=== PATIENT | female | born 1970 | race Caucasian/White ===

== ENCOUNTER 2017-01-05 13:14 | Emergency (ER) | payer OTHER ==
[2017-01-05 13:19] VITALS: BMI 20.5
[2017-01-05] MEDS ORDERED: ONDANSETRON 4 MG/2 ML VIAL IVPUSH ONE (13:54)
[2017-01-05] MEDS ORDERED: SODIUM CHLORIDE 1,000 ML IV STA (13:54)
[2017-01-05] MEDS ORDERED: KETOROLAC TROMETHAMINE 30 MG/1 ML VIAL IVPUSH ONE (13:56)
[2017-01-05] MEDS ORDERED: KETOROLAC TROMETHAMINE 30 MG/1 ML VIAL ONE (13:57)
[2017-01-05] MEDS ORDERED: ONDANSETRON 4 MG/2 ML VIAL ONE (13:58)
--- NOTE | 2017-01-05 14:15 | PDOC ---
History of Present Illness - General Chief Complaint: Pain Stated Complaint: PAIN Time Seen by Provider: 01/05/17 13:43 History Source: Patient - History of Present Illness Timing/Duration: reports: constant, getting worse Quality: reports: cramping Abdominal Pain Onset Location: reports: other (lower abd) Past History - Past Medical History Allergies/Adverse Reactions: Allergies Allergy/AdvReac Type Severity Reaction Status Date / Time latex Allergy Swelling Verified 01/05/17 13:20 Home Medications: Ambulatory Orders Ciprofloxacin HCl [Cipro] 500 mg PO BID #14 tablet 01/05/17 Fluoxetine HCl 20 mg PO DAILY 01/05/17 Metronidazole 500 mg PO Q8H #21 tablet 01/05/17 Oxycodone HCl/Acetaminophen [Percocet 5-325 mg Tablet] 2 combo PO Q6H 01/05/17 Trazodone HCl [Desyrel -] 150 mg PO HS PRN 01/05/17 Anemia: No Asthma: Yes Cancer: Yes (CERVICAL) Cardiac Disorders: No CVA: No COPD: Yes CHF: No Dementia: No Diabetes: No GI Disorders: No Disorders: No HTN: No Hypercholesterolemia: No Liver Disease: No Psychiatric Problems: Yes (DEPRESSION) Seizures: No Thyroid Disease: No - Surgical History Abdominal Surgery: No Appendectomy: Yes (2007) Cardiac Surgery: No Cholecystectomy: No Lung Surgery: No Neurologic Surgery: No Orthopedic Surgery: No - Family Disease History Family Disease History: Respiratory: Mother (copd) - Psycho/Social/Smoking Cessation Hx Anxiety: Yes Suicidal Ideation: No Smoking Status: Yes Smoking History: Never smoked Number of Cigarettes Smoked Daily: 2 Information on smoking cessation initiated: No 'Breaking Loose' booklet given: 11/26/12 Hx Alcohol Use: No Drug/Substance Use Hx: Yes (MARIJUANA IN THE PAST) Substance Use Type: Alcohol Hx Substance Use Treatment: No Review of Systems - Review of Systems Constitutional: No: Chills, Fever ABD/GI: Yes: Constipated, Nausea, Vomiting, Abdominal cramping : No: Dysuria *Physical Exam - Vital Signs Last Vital Signs Temp Pulse Resp BP Pulse Ox 98 F 81 18 111/82 100 01/05/17 13:16 01/05/17 13:16 01/05/17 13:16 01/05/17 13:16 01/05/17 13:16 - Physical Exam Comments: 01/05/17 14:14 pt crying in ED General Appearance: Yes: Appropriately Dressed HEENT: positive: Normal Voice Neck: positive: Supple Respiratory/Chest: negative: Respiratory Distress Gastrointestinal/Abdominal: positive: Normal Bowel Sounds, Tender, Soft. negative: Distended, Guarding, Rebound Musculoskeletal: negative: CVA Tenderness Integumentary: positive: Dry, Warm Neurologic: positive: Fully Oriented, Alert ED Treatment Course - LABORATORY CBC & Chemistry Diagram: 01/05/17 14:17 01/05/17 14:17 - RADIOLOGY Radiology Studies Ordered: Category Date Time Status ABDOMEN & PELVIS CT WITH CONTR [CT] Stat CT Scan 01/05/17 13:53 Ordered Medical Decision Making - Medical Decision Making 01/05/17 14:11 46 yo F, h/o asthma, migraines, COPD, chronic back pain on narcotics, s/p appendectomy, depression, anxiety w/ agoraphobia, f/u with psych at [facility] , [facility] w/ lower abd pain w/ n/v > 1 week that started shortly after being started on prozac but continues to take meds. Also c/o constipation that improved w/ MOM. No brbpr, melena, f/c See exam N/v w/ abd pain s/p prozac Stable w/ significant lower abd ttp on exam ?gastroenteritis vs SE of med (prozac known to cause dyspepsia, constipation, n/ v in ~10-30% of pts) -pain control -IVF -labs -will scan given sig pain 01/05/17 14:27 01/05/17 17:[address] w/ ?mild colitis of distal transverse, descending and sigmoid colon, no diverticulitis. Pt pain currently controlled. Stable for dc w / abx and PMD f/u *DC/Admit/Observation/Transfer Diagnosis at time of Disposition: Colitis - Discharge Dispostion Disposition: HOME Condition at time of disposition: Improved - Prescriptions Prescriptions: Ciprofloxacin HCl [Cipro] 500 mg PO BID #14 tablet Metronidazole 500 mg PO Q8H #21 tablet - Referrals Referrals: Andrew Olson [Primary Care Provider] - - Patient Instructions Printed Discharge Instructions: DI for Colitis Additional Instructions: Your CAT scan shows possibly mild inflammation to colon Take antibiotics as prescribed and follow-up with your PMD
[2017-01-05 14:29] LABS: EOSINOPHIL 1.5 % (0-4.5); MCH 32.1 pg (25.7-33.7); MCHC 33.4 g/dl (32.0-36.0); MEAN PLT VOLUME 9.2 fl (7.5-11.1); NEUTROPHILS 64.5 % (42.8-82.8); PLATELET COUNT 223 K/MM3 (134-434); RDW 13.8 % (11.6-15.6); WHITE BLOOD COUNT 10.4 K/mm3 (4.0-10.0)
[2017-01-05 14:31] LABS: URINE APPEARANCE CLEAR; URINE BLOOD 1+ (NEGATIVE); URINE COLOR AMBER; URINE GLUCOSE (UA) NEGATIVE (NEGATIVE); URINE KETONE TRACE (NEGATIVE); URINE LEUK ESTERASE NEGATIVE (NEGATIVE); URINE NITRITE NEGATIVE (NEGATIVE)
[2017-01-05 14:33] LABS: URINE PROTEIN 1+ (NEGATIVE)
[2017-01-05 14:36] LABS: URINE HYALINE CAST 2 /lpf; URINE MUCUS MANY; URINE RBC 9 /hpf (0-3); URINE WBC 1 /hpf (3-5)
[2017-01-05 15:23] LABS: ALBUMIN 4.2 g/dl (3.4-5.0); ANION GAP 7 (8-16); CALCIUM 9.7 mg/dL (8.5-10.1); CO2 28 mmol/L (21-32); CREATININE 1.1 mg/dL (0.55-1.02); GLUCOSE,RANDOM 73 mg/dL (74-106); SGOT/AST 11 U/L (15-37); SGPT/ALT 12 U/L (12-78)
[2017-01-05 15:24] LABS: ALK PHOS 78 U/L (45-117); BILIRUBIN,TOTAL 0.6 mg/dL (0.2-1.0); TOT PROT 7.4 g/dl (6.4-8.2)
[2017-01-05] MEDS ORDERED: morphine CARPU-JECT 4 MG/1 ML DISP.SYRIN IVPUSH ONE (17:17)
[2017-01-05] MEDS ORDERED: morphine CARPU-JECT 4 MG/1 ML DISP.SYRIN ONE (17:20)
[2017-01-05 18:07] VITALS: BP 120/66; PULSE 66; TEMP 97.8
== END 2017-01-05 18:07 | disposition home or self-care (01) ==
LOC: JER 13:14
PROC: 3E033NZ Introduction of Analgesics, Hypnotics, Sedatives into Peripheral Vein, Percutaneous Approach (ICD-10-PCS; principal; 2017-01-05)
PROC: 3E0333Z Introduction of Anti-inflammatory into Peripheral Vein, Percutaneous Approach (ICD-10-PCS; 2017-01-05)
PROC: 3E033GC Introduction of Other Therapeutic Substance into Peripheral Vein, Percutaneous Approach (ICD-10-PCS; 2017-01-05)
DX: K52.9 Noninfective gastroenteritis and colitis, unspecified (principal); J45.909 Unspecified asthma, uncomplicated; J44.9 Chronic obstructive pulmonary disease, unspecified; G43.909 Migraine, unspecified, not intractable, without status migrainosus; F41.8 Other specified anxiety disorders; F40.00 Agoraphobia, unspecified
CPT/HCPCS: 36415; 74177-TC; 80053; 81003; 81015; 84703; 85025; 96374; 96375; 99284-25

== ENCOUNTER 2017-02-04 07:32 | Day surgery (SDC) | payer OTHER ==
[2017-02-03 11:23] VITALS: BMI 22.1
[2017-02-04] MEDS ORDERED: PROPOFOL 20 ML ONE ×4 (08:40)
[2017-02-04 09:33] VITALS: TEMP 97.6
[2017-02-04 11:28] VITALS: BP 119/84; PULSE 66
--- NOTE | 2017-02-05 13:25 | PATH ---
Surgical Pathology Report Patient Name: PATRICK YU [facility] Rec. #: [id number] /Age/Gender: 1970 (Age: 46) / F Account: [id number] Location: [facility]-ENDOSCOPY Taken: 02/04/2017 Received: 02/04/2017 Reported: 02/05/2017 Physicians: Alessandro Aguero M.D. Specimen(s) Received A: BX ANTRUM B: BX MID ESOPHAGUS C: BX RIGHT COLON POLYPS Clinical History Constipation/abdominal pain Gastritis; colon polyps Final Diagnosis A. STOMACH, ANTRUM, BIOPSY: GASTRIC ANTRAL MUCOSA WITH MILD CHRONIC GASTRITIS. IMMUNOSTAIN FOR H. PYLORI IS NEGATIVE FOR ORGANISMS. B. ESOPHAGUS, MID, BIOPSY: SQUAMOUS EPITHELIUM WITH MILD CHRONIC INFLAMMATION AND REFLUX TYPE CHANGES. NO EVIDENCE OF EOSINOPHILIC ESOPHAGITIS. C. COLON, RIGHT, POLYP, BIOPSY: TUBULAR ADENOMA. ADDITIONAL POLYPOID FRAGMENT OF COLONIC MUCOSA WITH REACTIVE LYMPHOID AGGREGATE. Electronically Signed Earl Dougherty M.D. Gross Description A. Received in formalin, labeled "antrum" is a duckworth, irregular portion of soft tissue measuring 0.2 cm in greatest dimension. The specimen is submitted in toto in one cassette. B. Received in formalin, labeled "biopsy mid esophagus" are 2 duckworth, irregular portions of soft tissue measuring 0.1 cm in greatest dimension. The specimens are submitted in toto in one cassette. C. Received in formalin, labeled "biopsy right colon polyps" are 2 duckworth, irregular portions of soft tissue measuring 0.1-0.3 cm in greatest dimension. The specimens are submitted in toto in one cassette. [facility]/02/04/2017 [facility]/02/04/2017
== END 2017-02-04 10:45 | disposition home or self-care (01) ==
LOC: JASU-ENDO 07:32
PROVIDERS: ATTEND Internal Medicine Gastroenterology
PROC: 0DB68ZX Excision of Stomach, Via Natural or Artificial Opening Endoscopic, Diagnostic (ICD-10-PCS; 2017-02-04)
PROC: 0DBK8ZX Excision of Ascending Colon, Via Natural or Artificial Opening Endoscopic, Diagnostic (ICD-10-PCS; 2017-02-04)
PROC: 0DB28ZX Excision of Middle Esophagus, Via Natural or Artificial Opening Endoscopic, Diagnostic (ICD-10-PCS; principal; 2017-02-04 08:45)
DX: Z12.11 Encounter for screening for malignant neoplasm of colon (principal); K29.80 Duodenitis without bleeding; K29.50 Unspecified chronic gastritis without bleeding; Z80.0 Family history of malignant neoplasm of digestive organs; R63.4 Abnormal weight loss; D12.2 Benign neoplasm of ascending colon
CPT/HCPCS: 88305-TC; 88342-TC

== ENCOUNTER 2017-07-11 19:28 | Emergency (ER) | payer OTHER ==
--- NOTE | 2017-07-11 19:55 | PDOC ---
Rapid Medical Evaluation Chief Complaint: Headache Time Seen by Provider: 07/11/17 19:48 Medical Evaluation: Allergies Allergy/AdvReac Type Severity Reaction Status Date / Time No Known Allergies Allergy Verified 02/03/17 11:58 07/11/17 19:51 I have performed a brief in-person evaluation of this patient. The patient presents with a chief complaint of: chills, fevers, frontal headache and fullness "feels like a balloon". Pertinent physical exam findings: pale,runny nose , body aches I have ordered the following: Ibuprofen 400mg The patient will proceed to the ED for further evaluation.
[2017-07-11] MEDS ORDERED: IBUPROFEN 400 MG TABLET (FP) PO ONE (19:57)
[2017-07-11 20:01] VITALS: BP 121/93; PULSE 98; TEMP 98.6; BMI 23.7
[2017-07-11] MEDS ORDERED: MECLIZINE HCL 25 MG TABLET (FP) PO ONE (20:24)
--- NOTE | 2017-07-11 20:24 | PDOC ---
History of Present Illness - General Chief Complaint: Headache Stated Complaint: HEADACHE Time Seen by Provider: 07/11/17 19:48 History Source: Patient Exam Limitations: No Limitations - History of Present Illness Initial Comments: CHIEF COMPLAINT: 46 y/o afebrile female c/o feeling weak and dizzy since last night. HISTORY OF PRESENT ILLNESS: The patient states all of a sudden last night if she looks down or too quickly from side to side she feels like the room is spinning, she feels nauseous and weak. She denies f/c, neck pain, v/d, runny nose, cough, CP, SOB, abd pain, numbness/tingling, recent plane/boat travel. Vital signs on arrival are notable for pulse of 98. REVIEW OF SYSTEMS: GENERAL/CONSTITUTIONAL: No fever/chills. No weakness. No weight change. HEAD, EYES, EARS, NOSE AND THROAT: No change in vision. No ear pain or discharge. No sore throat. CARDIOVASCULAR: No chest pain or shortness of breath. RESPIRATORY: No cough, wheezing, or hemoptysis. GASTROINTESTINAL: +nausea. No abd pain, vomiting, diarrhea. GENITOURINARY: No dysuria, frequency, or change in urination. MUSCULOSKELETAL: No joint or muscle swelling or pain. No neck or back pain. SKIN: No rash or easy bruising. NEUROLOGIC: +dizziness and vertigo. No loss of consciousness or loss of sensation. PHYSICAL EXAM: GENERAL: The patient is awake, alert, and fully oriented, in no acute distress. She is non toxic appearing. HEAD: Normal with no signs of trauma. Dizziness and nausea reproduced with rapid movement of head from side to side; worse with movement to left side. ENT: Pupils equal, round and reactive to light, extraocular movements intact, sclera anicteric, conjunctiva clear. No nystagmus. LUNGS: Clear to auscultation bilaterally. Normal excursion. No respiratory distress or use of accessory muscles. CV: RRR, S1/S2, no MRG. Cap refill < 2 sec. ABDOMEN: Soft, non-distended, non-tender even to deep palpation, no hepatomegaly or splenomegaly, no masses. EXTREMITIES: Normal range of motion, no edema. NEUROLOGICAL: Normal speech, normal gait. CN II-XII grossly intact. PSYCH: Normal mood, normal affect. SKIN: Warm, dry, normal turgor, no rashes or lesions noted. Past History - Past Medical History Allergies/Adverse Reactions: Allergies Allergy/AdvReac Type Severity Reaction Status Date / Time No Known Allergies Allergy Verified 07/11/17 19:51 Home Medications: Ambulatory Orders Trazodone HCl [Desyrel -] 150 mg PO HS 01/05/17 Albuterol Sulfate Inhaler - [Ventolin HFA Inhaler -] 1 - 2 inh PO Q4H 02/03/17 Bupropion HCl [Bupropion Xl] 300 mg PO DAILY 02/03/17 Clonazepam [Klonopin] 1 mg PO DAILY 02/03/17 Ranitidine [Zantac -] 150 mg PO BID 02/03/17 Tizanidine HCl 4 mg PO DAILY 02/03/17 Albuterol Sulfate Inhaler - [Ventolin Hfa Inhaler -] 1 - 2 inh PO Q4H 07/11/17 Aspirin/Acetaminophen/Caffeine [Excedrin Migraine Caplet] 1 each PO ASDIR Epinephrine [Epipen] 0.3 mg IJ ASDIR 07/11/17 Fexofenadine HCl [Cora Allergy] 180 mg PO ASDIR 07/11/17 Risperidone [Risperdal] 2 mg PO DAILY 07/11/17 Anemia: No Asthma: Yes Cancer: Yes (CERVICAL) Cardiac Disorders: No CVA: No COPD: Yes CHF: No Dementia: No Diabetes: No GI Disorders: No Disorders: No HTN: No Hypercholesterolemia: No Liver Disease: No Psychiatric Problems: Yes (DEPRESSION) Seizures: No Thyroid Disease: No - Surgical History Abdominal Surgery: No Appendectomy: Yes (2007) Cardiac Surgery: No Cholecystectomy: No Lung Surgery: No Neurologic Surgery: No Orthopedic Surgery: No - Family Disease History Family Disease History: Respiratory: Mother (copd) - Suicide/Smoking/Psychosocial Hx Smoking Status: Yes Smoking History: Current every day smoker Number of Cigarettes Smoked Daily: 4 Information on smoking cessation initiated: No 'Breaking Loose' booklet given: 02/04/17 Hx Alcohol Use: No Drug/Substance Use Hx: No Substance Use Type: Marijuana Hx Substance Use Treatment: No Neuro Specific PMHX - Complaint Specific PMHX Glaucoma: No Herniated Disk: No Laminectomy: No Migraine: No Multiple Sclerosis: No TIA: No *Physical Exam - Vital Signs Last Vital Signs Temp Pulse Resp BP Pulse Ox 98.6 F 98 H 16 121/93 98 07/11/17 19:51 07/11/17 19:51 07/11/17 19:51 07/11/17 19:51 07/11/17 19:51 ED Treatment Course - Medications Given in the ED: ED Medications Discontinued Medications Generic Name Dose Route Start Last Admin Trade Name Americo PRN Reason Stop Dose Admin Ibuprofen 400 mg 07/11/17 19:57 07/11/17 20:04 Motrin - PO 07/11/17 19:58 400 mg ONCE ONE Administration Medical Decision Making - Medical Decision Making A/P: 46 y/o female with symptoms of vertigo. Plan is as follows: 1. PO meclizine 2. Reassess The patient states she feels much better after meclizine and wants to go home. Will discharge to home with rx for meclizine. INstructed the patient to drink plenty of fluids and return to the ER with any worsening or concerning symptoms. The patient verbalizes understanding of all instructions, has no further questions and is awaiting discharge. *DC/Admit/Observation/Transfer Diagnosis at time of Disposition: Vertigo - Discharge Dispostion Disposition: HOME Condition at time of disposition: Improved - Referrals Referrals: Andrew Olson [Primary Care Provider] - - Patient Instructions Printed Discharge Instructions: DI for Vertigo Additional Instructions: Discharge Instructions: -You have symptoms of vertigo. -A prescription has been sent to your pharmacy for your symptoms; take as prescribed only if needed -Drink plenty of liquids daily -Return to the ER with any worsening or concerning symptoms. - Post Discharge Activity
[2017-07-11] MEDS ORDERED: MECLIZINE HCL 25 MG TABLET (FP) ONE (20:29)
--- NOTE | 2017-07-12 11:34 | PDOC ---
Patient Follow-up (Call Back) - Post ED Follow - Up Condition at time of discharge: Unchanged/Unknown Disposition at time of original discharge: HOME Signs/Symptoms Improved: No - Disposition Additional Instructions/Notes: Patient called she was seen in fast track yesterday however stating that her prescription did not make it to the pharmacy. I have reviewed her chart and found that she was seen here for vertigo. Meclizine was given here in the fast track and I have prescribed 10 tablets of meclizine for her. I have called her back at [phone] and told her that I resent the prescription to medicine cabinet as per her request.
== END 2017-07-11 21:19 | disposition home or self-care (01) ==
LOC: JERFT 19:28 → JER 19:28 → JERFT 21:19
DX: R42 Dizziness and giddiness (principal); J44.9 Chronic obstructive pulmonary disease, unspecified; F32.9 Major depressive disorder, single episode, unspecified; Z85.41 Personal history of malignant neoplasm of cervix uteri
CPT/HCPCS: 99281-25

== ENCOUNTER 2018-08-01 16:55 | Emergency (ER) | payer OTHER, BC ==
[2018-08-01 17:01] VITALS: BP 109/74; PULSE 95; TEMP 98.4; BMI 26.5
[2018-08-01] MEDS ORDERED: ACETAMINOPHEN 325 MG TABLET (FP) PO ONE (17:34)
--- NOTE | 2018-08-01 17:34 | PDOC ---
History of Present Illness - General Chief Complaint: Rash Stated Complaint: BLISTERS ON L LEG/PAIN Time Seen by Provider: 08/01/18 17:26 History Source: Patient (painful rash behind L thigh) Exam Limitations: No Limitations (47y/o F with painful rash behind L posterior thigh X 3 days) Past History - Travel Traveled outside of the country in the last 30 days: No Close contact w/someone who was outside of country & ill: No - Past Medical History Allergies/Adverse Reactions: Allergies Allergy/AdvReac Type Severity Reaction Status Date / Time No Known Allergies Allergy Verified 08/01/18 17:01 Home Medications: Ambulatory Orders traZODone HCL [Desyrel -] 150 mg PO HS 01/05/17 Bupropion HCl [Bupropion Xl] 300 mg PO DAILY 02/03/17 Clonazepam [Klonopin] 1 mg PO DAILY 02/03/17 Ranitidine [Zantac -] 150 mg PO BID 02/03/17 Tizanidine HCl 4 mg PO DAILY 02/03/17 Albuterol Sulfate Inhaler - [Ventolin Hfa Inhaler -] 1 - 2 inh PO Q4H 07/11/17 Aspirin/Acetaminophen/Caffeine [Excedrin Migraine Caplet] 1 each PO ASDIR Epinephrine [Epipen] 0.3 mg IJ ASDIR 07/11/17 Fexofenadine HCl [Cora Allergy] 180 mg PO ASDIR 07/11/17 Risperidone [Risperdal] 2 mg PO DAILY 07/11/17 Meclizine HCl [Antivert -] 25 mg PO DAILY #10 tablet 07/12/17 Valacyclovir HCl [Valtrex -] 1,000 mg PO TID 7 Days #21 tablet 08/01/18 Anemia: No Asthma: Yes Cancer: Yes (CERVICAL) Cardiac Disorders: No CVA: No COPD: Yes CHF: No Dementia: No Diabetes: No GI Disorders: No Disorders: No HTN: No Hypercholesterolemia: No Liver Disease: No Psychiatric Problems: Yes (DEPRESSION) Seizures: No Thyroid Disease: No - Surgical History Abdominal Surgery: No Appendectomy: Yes (2007) Cardiac Surgery: No Cholecystectomy: No Lung Surgery: No Neurologic Surgery: No Orthopedic Surgery: No - Family Disease History Family Disease History: Respiratory: Mother (copd) - Suicide/Smoking/Psychosocial Hx Smoking Status: Yes Smoking History: Current every day smoker Number of Cigarettes Smoked Daily: 4 Information on smoking cessation initiated: No 'Breaking Loose' booklet given: 02/04/17 Hx Alcohol Use: No Drug/Substance Use Hx: No Substance Use Type: Marijuana Hx Substance Use Treatment: No Review of Systems - Review of Systems Able to Perform ROS?: Yes Is the patient limited Pakistani proficient: No Constitutional: No: Chills, Fever Integumentary: Yes: Rash *Physical Exam - Vital Signs Last Vital Signs Temp Pulse Resp BP Pulse Ox 98.4 F 95 H 18 109/74 98 08/01/18 16:58 08/01/18 16:58 08/01/18 16:58 08/01/18 16:58 08/01/18 16:58 - Physical Exam General Appearance: Yes: Nourished Integumentary: positive: Other (L thigh: grouped vesicular lesions in posterior thigh) 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, Fully Oriented, Alert Moderate Sedation - Procedure Monitoring Vital Signs: Procedure Monitoring Vital Signs Temperature 98.4 F 08/01/18 16:58 Pulse Rate 95 H 08/01/18 16:58 Respiratory Rate 18 08/01/18 16:58 Blood Pressure 109/74 08/01/18 16:58 O2 Sat by Pulse Oximetry (%) 98 08/01/18 16:58 *DC/Admit/Observation/Transfer Diagnosis at time of Disposition: Shingles Qualifiers: Herpes zoster complications: without complications Qualified Code(s): B02.9 - Zoster without complications - Discharge Dispostion Disposition: HOME Condition at time of disposition: Good Decision to Admit order: No - Prescriptions Prescriptions: Valacyclovir HCl [Valtrex -] 1,000 mg PO TID 7 Days #21 tablet - Referrals Referrals: Audra Baron [Primary Care Provider] - - Patient Instructions Printed Discharge Instructions: DI for Shingles - Post Discharge Activity
[2018-08-01] MEDS ORDERED: ACETAMINOPHEN 325 MG TABLET (FP) ONE (17:38)
== END 2018-08-01 17:46 | disposition home or self-care (01) ==
LOC: JERFT 16:55
DX: B02.9 Zoster without complications (principal); J44.9 Chronic obstructive pulmonary disease, unspecified; J45.909 Unspecified asthma, uncomplicated; F32.9 Major depressive disorder, single episode, unspecified; Z85.41 Personal history of malignant neoplasm of cervix uteri
CPT/HCPCS: 99281-25

== ENCOUNTER 2022-09-03 05:36 | Day surgery (SDC) | payer OTHER ==
[2022-08-29 16:33] VITALS: BMI 37.5
[2022-09-03 12:13] VITALS: TEMP 97.5
[2022-09-03 13:59] VITALS: BP 109/69; PULSE 65; RESP 16
== END 2022-09-03 14:00 | disposition home or self-care (01) ==
LOC: JASU-ENDO 05:36
PROVIDERS: ATTEND Student in an Organized Health Care Education/Training Program
PROC: 0DBL8ZX Excision of Transverse Colon, Via Natural or Artificial Opening Endoscopic, Diagnostic (ICD-10-PCS; 2022-09-03)
PROC: 0DBK8ZX Excision of Ascending Colon, Via Natural or Artificial Opening Endoscopic, Diagnostic (ICD-10-PCS; 2022-09-03)
PROC: 0DBP8ZX Excision of Rectum, Via Natural or Artificial Opening Endoscopic, Diagnostic (ICD-10-PCS; 2022-09-03)
PROC: 0DBB8ZX Excision of Ileum, Via Natural or Artificial Opening Endoscopic, Diagnostic (ICD-10-PCS; 2022-09-03)
PROC: 0DBM8ZX Excision of Descending Colon, Via Natural or Artificial Opening Endoscopic, Diagnostic (ICD-10-PCS; 2022-09-03)
PROC: 0DBP8ZX Excision of Rectum, Via Natural or Artificial Opening Endoscopic, Diagnostic (ICD-10-PCS; principal; 2022-09-03 13:00)
DX: D12.8 Benign neoplasm of rectum (principal); D12.4 Benign neoplasm of descending colon; K63.5 Polyp of colon
CPT/HCPCS: 88305-TC

== ENCOUNTER 2022-09-10 05:34 | Day surgery (SDC) | payer OTHER ==
[2022-09-09 10:23] VITALS: BMI 36.8
[2022-09-10 14:19] VITALS: BP 107/69; PULSE 64; RESP 14
[2022-09-10 14:39] VITALS: TEMP 98
== END 2022-09-10 14:15 | disposition home or self-care (01) ==
LOC: JASU-ENDO 05:34
PROVIDERS: ATTEND Student in an Organized Health Care Education/Training Program
PROC: 0DB78ZX Excision of Stomach, Pylorus, Via Natural or Artificial Opening Endoscopic, Diagnostic (ICD-10-PCS; 2022-09-10)
PROC: 0DB68ZX Excision of Stomach, Via Natural or Artificial Opening Endoscopic, Diagnostic (ICD-10-PCS; principal; 2022-09-10 12:30)
DX: K29.50 Unspecified chronic gastritis without bleeding (principal); K44.9 Diaphragmatic hernia without obstruction or gangrene
CPT/HCPCS: 88305-TC; 88342-TC